=== PATIENT | female | born 1990 | race Caucasian/White ===

== ENCOUNTER → 2017-10-15 | Outpatient (CLI) | payer BC ==
--- NOTE | 2017-10-15 12:09 | MRI ---
HISTORY: Cervicalgia. Noncontrast MRI examination of the cervical spine. Technique: Multiplanar multi-sequence MRI of the cervical spine was obtained. Sagittal T1, sagittal T2, and stir weighted images, axial T1, and axial T2 images were obtained. Findings: The cervical spine demonstrates normal alignment with the expected signal characteristics of the bone marrow. No significant disc pathology, foraminal narrowing, or spinal canal stenosis is observed. Th ere is no evidence for an acute fracture, compression deformity, or aggressive marrow lesion. No evid ence of degenerative disk disease or appreciable facet osteoarthritis can be identified. No abnormal disc signal is seen. There is normal spinal cord signal seen without abnormal T2 signal, cord expansi on, or spinal cord contusion. No intrathecal mass lesion or intrathecal hemorrhage is seen. There is no evidence for cerebellar tonsillar ectopia. The surrounding cervical soft tissues are unremarkable . No other abnormalities are seen. IMPRESSION: Negative cervical spine MRI exam. Reported By:
== END ==
LOC: RAD 10:28
PROVIDERS: ATTEND Nurse Practitioner Family
DX: M54.2 Cervicalgia (principal)
CPT/HCPCS: 72141